=== PATIENT | female | born 1950 | race Two or more races ===

== ENCOUNTER 2020-03-11 07:15 | Outpatient (CLI) | payer OTHER | END 2020-03-11 23:59 | disposition home or self-care (01) | LOC: LAB 07:15 | PROVIDERS: ATTEND Ophthalmology | DX: Z01.812 Encounter for preprocedural laboratory examination (principal); Z20.828 Contact with and (suspected) exposure to other viral communicable diseases; H26.9 Unspecified cataract ==

== ENCOUNTER 2020-03-13 06:21 | Day surgery (SDC) | payer OTHER ==
[~2020-03-13 06:21] MED LIST: BALANCED SALT IRRIG SOLN COMB1 500 ML, EPINEPHRINE-PF 1:1000 0.5 MG IO ONE
[2020-03-13] MEDS ORDERED: ONDANSETRON 4 MG/2 ML VIAL IV ONE (06:22)
[2020-03-13] MEDS ORDERED: IV LACTATED RINGERS SOLUTION 1,000 ML BAG IV ONE (06:22)
[2020-03-13] MEDS ORDERED: KETOROLAC 0.5% OPHT DROP 3 ML BOTTLE ONE (06:37)
[2020-03-13] MEDS ORDERED: CIPROFLOXACIN 0.3% OPHT DROP 2.5 ML BOTTLE ONE (06:37)
[2020-03-13] MEDS ORDERED: TROPICAMIDE 1% OPHT DROP 3 ML BOTTLE ONE (06:38)
[2020-03-13] MEDS ORDERED: CYCLOPENTOLATE 1% OPHT DROP 2 ML BOTTLE ONE (06:38)
[2020-03-13] MEDS ORDERED: PHENYLEPHRINE 2.5% OPHT DROP 2 ML BOTTLE ONE (06:38)
[2020-03-13] MEDS ORDERED: BUPIVACAINE PF 0.5% 30 ML VIAL ONE (06:43)
[2020-03-13] MEDS ORDERED: HYALURONIDASE,OVINE 200 UNITS/ML VIAL ONE (06:44)
[2020-03-13] MEDS ORDERED: TRYPAN BLUE 0.5 ML DISP.SYRIN ONE (06:45)
[2020-03-13] MEDS ORDERED: HYALURONATE SODIUM 12.8 MG/0.8 ML DISP.SYRIN ONE (06:45)
[2020-03-13] MEDS ORDERED: MOXIFLOXACIN HCL 3 ML OPHT DROPS ONE (06:46)
[2020-03-13] MEDS ORDERED: NEO/POLYMYX B/DEXAME OPHT OINT 3.5 GM TUBE ONE (06:47)
[2020-03-13] MEDS ORDERED: ACETYLCHOLINE CHLORIDE 1% OPHT 1 EA KIT ONE (06:47)
[2020-03-13] MEDS ORDERED: TIMOLOL MALEATE 0.5% OPHT DROP 5 ML BOTTLE ONE (06:47)
[2020-03-13] MEDS ORDERED: BALANCED SALT IRRIG SOLN COMB2 15 ML IRRIG.SOLN ONE (06:47)
[2020-03-13] MEDS ORDERED: LIDOCAINE HCL 2% 5 ML JELLY ONE (07:25)
[2020-03-13] MEDS ORDERED: LIDOCAINE-MPF 2% 5 ML VIAL ONE (07:26)
[2020-03-13] MEDS ORDERED: FENTANYL CITRATE 100 MCG/2 ML AMPUL ONE (07:56)
== END 2020-03-13 10:00 | disposition home or self-care (01) ==
LOC: DS 06:21
PROVIDERS: ATTEND Ophthalmology
DX: H25.89 Other age-related cataract (principal); I10 Essential (primary) hypertension; Z85.3 Personal history of malignant neoplasm of breast; Z79.899 Other long term (current) drug therapy; Z98.890 Other specified postprocedural states
CPT/HCPCS: 66984; 71045; J0171; J2405; J3010; J3471; J3490 ×2; J7120; J7321; V2632; A4663; J7030; Q9968